=== PATIENT | female | born 1975 | race Caucasian/White ===

== ENCOUNTER 2021-05-16 15:08 | Outpatient (CLI) | payer OTHER, SELFPAY ==
--- NOTE | ~2021-05-16 | US_ITS ---
EXAMINATION: US pelvic complete w TV DATE: 05/16/2021 16:00 INDICATION: Hypertrophy of uterus. TECHNIQUE: Multiple transabdominal and transvaginal sonographic images of the pelvis were obtained. COMPARISON: Ultrasound 02/14/2011 FINDINGS: TRANSABDOMINAL ULTRASOUND: The uterus measures 9.2 x 6.9 x 4.6 cm. There is no free fluid in the pelvis. TRANSVAGINAL ULTRASOUND: The endometrial complex measures 7 mm in thickness. The right ovary measures 2.6 x 1.5 x 1.8 cm. The left ovary measures 2.8 x 2.9 x 1.6 cm. There is normal vascular flow in the ovaries. IMPRESSION: 1. Normal pelvis. Reviewed, dictated and finalized at location A. IRONER IMPRESSION: 1. Normal pelvis.
== END 2021-05-16 15:09 | disposition home or self-care (01) ==
PROVIDERS: PCP Family Medicine; Visit Provider Obstetrics & Gynecology
DX: N85.2 Hypertrophy of uterus (principal); N92.0 Excessive and frequent menstruation with regular cycle
CPT/HCPCS: 76830; 76856

== ENCOUNTER 2021-07-24 00:08 | Day surgery (SDC) | payer OTHER, SELFPAY ==
[2021-07-10 15:02] VITALS: BMI 25.8
[2021-07-24 08:46] VITALS: BP 109/72; PULSE 66; RESP 20; TEMP 36.4; O2SAT 66
[2021-07-24] MEDS: LACTATED RINGERS 1,000 ML 150 ML IV CONT (08:56)
--- NOTE | 2021-07-24 09:03 | P.PNAN_ITS ---
Anes - Initial Pre Proc Eval Procedure: Operation Date: 07/24/21 09:45 Proposed Procedures p Screening Colonoscopy - Rafael Rice MD Date/Time: 07/24/21 09:03 Surgeon: Rafael Rice MD Pre Op Diagnosis: neoplasm screening Patient Data Age: 45 Gender: F Height: 1.57 m Weight: 70.1 kg Last Vital Signs Temp 36.4 C L 07/24/21 08:46 Pulse 66 07/24/21 08:46 Resp 20 07/24/21 08:46 BP 109/72 07/24/21 08:46 Pulse Ox 66 L 07/24/21 08:46 Allergies Allergy/AdvReac Type Severity Reaction Status Date / Time clindamycin Allergy Unknown unkn Verified 07/24/21 08:45 Home Medications Medication Instructions Recorded Confirmed Type escitalopram oxalate 20 mg tablet 20 mg PO DAILY #14 tablet 04/18/21 07/10/21 Rx epinephrine [EpiPen 2-Giovanni] 0.3 mg IM PRN PRN 07/10/21 07/10/21 History spironolactone 100 mg PO DAILY 07/10/21 07/10/21 History Patient hx anesthesia problems: none Family hx anesthesia problems: none Results Review: All pre-operative results and documents have been reviewed as part of the pre-operative evaluation. [facility] Past Medical History Medical History Abnormal Pap smear of cervix Anxiety Condyloma acuminata Missed x1 Vaginal delivery x1 Surgical History Surgical History H/O section x1 History of colposcopy 2006 History of dilation and curettage 2006 Family History Family History Grandparent Carcinoma of colon Family history of coronary artery disease Diabetes mellitus Father Acute myocardial infarction Mother No problems noted. Sibling Hypertension Social History Social History Smoking status: Never smoker Second hand tobacco smoke exposure: No Alcohol intake: current Drinks per week: 3 Substance use: never Substance use type: does not use Living arrangements: with family Additional occupation/education comments: teacher-[employer] Spiritual care concerns: No Anes - Eval Final PreProcedure Day of Procedure 07/24/21 09:03 Patient weight: overweight Heart: regular rate and rhythm Lungs: clear to auscultation Airway: Mallampati scale class II Neurological: alert and oriented Last oral intake: >/= 8 hours ASA classification: II Emergent: no Anesthetic plan: proceed Anesthesia type and monitoring: general GIVS and standard monitoring Results Review: All pre-operative results and documents have been reviewed as part of the pre-operative evaluation. Informed Consent: The patient's anesthetic plan and its attendant risks and benefits were discussed with the patient/family/POA. Questions were solicited and answers provided to the satisfaction of the patient/family/POA.
--- NOTE | 2021-07-24 09:19 | PM.HPGS ---
History of Present Illness History of Present Illness Consent: Risks, benefits, and alternatives have been discussed and questions answered. Patient agrees to proceed with procedure. Chief complaint: neoplasm screening Narrative: Nilsa Dewitt is a 45 year old female here for screening colonoscopy, had one about 15 years ago when she had C diff. Review of Systems Constitutional: Constitutional: Denies headache(s) and Denies weakness Eyes: Eyes: Denies blurry vision ENT: Reports Normal hearing present, Denies headache(s) and Denies neck pain Cardiovascular: Cardiovascular: Denies chest pain and Denies dyspnea Respiratory: Respiratory: Denies dyspnea Gastrointestinal: Gastrointestinal: Reports no additional gastrointestinal complaints Genitourinary: Genitourinary: Denies dysuria Musculoskeletal: Musculoskeletal: Denies neck pain Integumentary/Breasts: Skin/Breast: Denies dry skin Neurologic: Reports Normal hearing present, Denies headache(s) and Denies weakness Psychiatric: Psychiatric: Denies anxiety Endocrine: Endocrine: Denies change in body appearance Hematologic/Lymphatic: Hematologic/Lymphatic: Denies easy bleeding Allergic/Immunologic: Allergic/Immunologic: Denies urticaria PMFSH Past Medical History Medical History Abnormal Pap smear of cervix Anxiety Condyloma acuminata Missed x1 Vaginal delivery x1 Surgical History Surgical History H/O section x1 History of colposcopy 2006 History of dilation and curettage 2006 Family History Family History Grandparent Carcinoma of colon Family history of coronary artery disease Diabetes mellitus Father Acute myocardial infarction Mother No problems noted. 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: No Meds Home Medications and Allergies Home Medications Medication Instructions Recorded Confirmed Type escitalopram oxalate 20 mg tablet 20 mg PO DAILY #14 tablet 04/18/21 07/10/21 Rx epinephrine [EpiPen 2-Giovanni] 0.3 mg IM PRN PRN 07/10/21 07/10/21 History spironolactone 100 mg PO DAILY 07/10/21 07/10/21 History Allergies Allergy/AdvReac Type Severity Reaction Status Date / Time clindamycin Allergy Unknown unkn Verified 07/24/21 08:45 Vital Signs Vital Signs - 24 hr 07/24/21 08:46 Temperature 97.5 F L Pulse Rate 66 Respiratory Rate 20 Blood Pressure 109/72 Pulse Oximetry 66 L Exam Const: General: comfortable and no acute distress HENMT: General nose exam: Normal nares present Eyes: General: appearance normal, both eyes and all related structures Neck: Neck: no JVD Resp: Auscultation: clear to auscultation bilaterally Cardio: Rate: regular rate Rhythm: regular rhythm GI: Inspection: non-distended GI Palp: Yes Soft to palpation Skin: General skin exam: normal color Neuro: General: gait normal Speech: normal speech Extrem: General: normal to inspection Psych: Mental Status: mental status grossly normal Assessment and Plan Assessment and plan (1) Colon cancer screening: Code(s): Z12.11 - Encounter for screening for malignant neoplasm of colon Status: Acute Assessment and Plan: colonoscopy
[2021-07-24 09:35] VITALS: BP 96/51; PULSE 64; RESP 19; O2SAT 98
[2021-07-24 09:45] VITALS: BP 93/58; PULSE 62; RESP 24; O2SAT 100
[2021-07-24 09:55] VITALS: BP 108/70; PULSE 61; RESP 16; O2SAT 100
== END 2021-07-24 10:20 | disposition home or self-care (01) ==
PROVIDERS: PCP Family Medicine; Visit Provider Internal Medicine Gastroenterology
PROC: 0DJD8ZZ Inspection of Lower Intestinal Tract, Via Natural or Artificial Opening Endoscopic (ICD-10-PCS; CPT 45378; principal; 2021-07-24 09:45)
DX: Z12.11 Encounter for screening for malignant neoplasm of colon (principal); K63.5 Polyp of colon; F41.9 Anxiety disorder, unspecified
CPT/HCPCS: 45385; 88305; J2704; J7120